=== PATIENT | male | born 1975 | race Caucasian/White ===

== ENCOUNTER 2016-09-12 13:22 | Emergency (ER) | payer OTHER ==
[~2016-09-12] VITALS: Ht 172.7 cm; Wt 86.4 kg
[~2016-09-12 13:22] MED LIST: AZIT250T4 PO; NAPR550T44 PO; PRE20 PO
[2016-09-12 13:35] VITALS: BP 118/74; PULSE 104; RESP 15; O2SAT 99
--- NOTE | 2016-09-12 15:30 | ED.REPORT ---
HPI-General Illness Date of Service Sep 12, 2016 ED Provider: Martínez Morejon MD Pt is a 41 y.o. male who presents to the ED c/o low back pain onset 2 days ago. Pt also reports that he has a cyst on his upper back that has been increasing in pain, and that 2 days ago he began to have severe lower back pain. He denies urinary or fecal incontinence and numbness or weakness in his lower extremities. He reports current abx use for his cyst, and has an appointment on Monday with a general surgeon regarding it. Pt claims to have not taken his abx since yesterday as he "forgot them at home". Nursing Notes Stated Complaint: CHEST,BACK,CYST PAIN Chief Complaint: Back Pain or Injury Nursing Notes Reviewed: Yes Allergies: Coded Allergies: No Known Allergies (Verified Allergy, Unknown, 09/12/16) Scheduled Azithromycin (Zithromax (Z-Jagdish)) 250 Mg Tablet 250 MG PO DAILY Prednisone (PredniSONE) 20 Mg Tablet 60 MG PO DAILY Scheduled PRN Hydrocodone-Acetaminophen 5-325 mg (Hydrocodone-Acetaminophen 5-325 mg) 1 Each Tablet 1 TABLET PO Q4H PRN PRN For Pain Ibuprofen (Ibuprofen) 800 Mg Tablet 800 MG PO TID PRN PRN For Pain Ibuprofen (Ibuprofen) 600 Mg Tablet 600 MG PO QID PRN PRN For Pain Naproxen Sodium (Naproxen Sodium) 550 Mg Tab 550 MG PO BID PRN PRN For Pain General Time Seen by MD: 15:28 Chief Complaint Back pain Hx Obtained From: Patient Arrived By: Walk-in Sudden in Onset?: Yes Onset Occurred: 2 days ago Context of Onset: Recent antibiotic use Symptom Duration: Since onset Location: : Back Quality: Painful Severity: Current: Severe Similar Sx Previous: No Past Medical History Past Medical History remote history of menisceal tear on R, no arthroscopy Past Surgical History negative Family History non contributory Smoking History Current Every Day Smoker Social History Alcohol Use: Denies alcohol use Drug Use: THC Occupation civil drafter Ambulatory Status Independent Review of Systems Full Review of Systems Male: Denies Incontinence Musculoskeletal: Reports: Back pain Neurologic: Denies: Numbness, Weakness Complete sys rev & neg: except as marked. Physical Exam Vital Signs Vital Signs Date Time Temp Pulse Resp B/P Pulse Ox O2 Delivery O2 Flow Rate FiO2 09/12/16 13:35 36.4 104 15 118/74 99 Room Air Initial VS: Reviewed Head / Eyes: Atraumatic, Normocephalic Respiratory: Breath sounds normal, Clear to auscultation, No respiratory distress Cardiovascular: Regular rate & rhythm, Intact distal pulses Abdomen / GI: No distention Extremities: Vascular intact, Neuro intact Neurologic: Alert, Oriented, Nonfocal Psychiatric: Mood/affect normal, Behavior normal, Normal thought content General/Constitutional: Awake, Alert, Well appearing, Well developed, Well hydrated, Well nourished, Not toxic appearing Appearance / Presentation: Positive: In pain Back: Atraumatic Positive straight leg raise, right Skin: Warm, Dry, Intact Abscess Notes: 2x2 cm cyst right upper back surrounding inflammation Abscess #1 Location/Condition: Positive: Location (Upper back), Negative: Fluctuant, Indurated Re-Eval/Medical Decision Med Decision/Clinical Course 41-year-old male presenting complaining of cyst in back. Reports pain. He has a surgeon later this week. Does appear inflamed though no evidence of infection. He also has sciatica 2 days. No trauma. Positive straight leg raise. Patient was given Toradol with improvement will be discharged home with plans to follow up with his surgeon later this week. Return precautions given. Source of Hx: Old records Time of Eval: 15:33 Re-Evaluation/Progress Note: Physical examination performed. Discussed plan to administer Toradol IM and discharge, pt understands and agrees with plan. Discharge & Departure Primary Impression: Cyst Additional Impression: Sciatica Laterality: unspecified laterality Qualified Code: M54.30 - Sciatica, unspecified side Disposition: Home Discharge Condition All VS Reviewed: Yes Condition: Stable Patient Instructions: Sciatica (ED) Additional Instructions: It appears that the cause for your low back pain is sciatica. I recommend you follow-up with your primary care provider to discuss physical therapy and other treatment options. Keep your Monday appointment with the general surgeon for your cyst. Also keep taking your antibiotics as prescribed. I will prescribe you narcotics and extra strength ibuprofen to take as needed for pain. Do not consume alcohol or drive while taking narcotics. Seek care if you develop incontinence, numbness or weakness in your lower extremities, fever, signs of infection, or any new or worsening symptoms. Referrals: Pamella Juan (PCP) Scribe Attestation Portions of this note were transcribed by Get Sood. I, Dr. Morejon personally performed the history, physical exam and medical decision-making; I reviewed and confirmed the accuracy of the information in the transcribed note. Signed by: Emmett Heard, 09/12/16 and 2026. copies to: Pamella Juan Ben M MD Sep 12, 2016 15:29 GET SOOD Sep 12, 2016 15:36
[2016-09-12] MEDS ORDERED: Ketorolac 30 mg/mL 2 mL Inj IM ONE (15:40)
[2016-09-12] MEDS ORDERED: IBUP800T28 PO (15:42)
[2016-09-12] MEDS ORDERED: HYDR-4003 PO (15:42)
[2016-09-12] MEDS ORDERED: IBUP-1827 PO (15:59)
== END 2016-09-12 16:35 | disposition home or self-care (01) ==
LOC: SED 13:22
DX: L72.9 Follicular cyst of the skin and subcutaneous tissue, unspecified (principal); M54.31 Sciatica, right side; F17.200 Nicotine dependence, unspecified, uncomplicated
CPT/HCPCS: 96372; 99283; J1885